=== PATIENT | male | born 1980 | race African-American/Black ===

== ENCOUNTER 2016-07-27 19:03 | Emergency (ER) | payer SELFPAY ==
[2016-07-27] MEDS ORDERED: NAPROXEN 250 MG TABLET PO ONE (20:06)
[2016-07-27] MEDS ORDERED: PENICILLIN V POTASSIUM 500 MG TABLET PO ONE (20:06)
--- NOTE | 2016-07-27 20:08 | ER Document Report ---
HPI - HPI Patient complains to provider of: toothache and facial swelling Pain Level: 4 Context: Patient is a 35-year-old male presents emergency Department complaining of tooth pain since Wednesday but no onset facial swelling today. Patient denies any fevers or chills. Able to swallow without any difficulty, denies any muffled speech, shortness of breath, difficulty breathing, followed or drainage from around this tooth. Patient states that he previously broken this tooth trying to extract it because he didn't want to go to the dentist this happened a couple of years ago. Otherwise denies any other medical problems no known drug allergies. - DERM Skin Color: Normal, [place] Past Medical History - Social History Smoking Status: Current Every Day Smoker Family History: Reviewed & Not Pertinent Patient has suicidal ideation: No Patient has homicidal ideation: No Pulmonary Medical History: Reports: Hx Asthma - unsure? possible hx when he was a child Renal/ Medical History: Denies: Hx Peritoneal Dialysis - Immunizations Hx Diphtheria, Pertussis, Tetanus Vaccination: No Vertical Provider Document - CONSTITUTIONAL Agree With Documented VS: Yes Exam Limitations: No Limitations General Appearance: WD/WN, No Apparent Distress Notes: PHYSICAL EXAM GENERAL: Alert, interacts well. ENT:Uvula midline. Airway patent. No evidence of tonsillar enlargement, peritonsillar abscess, retropharyngeal abscess. NECK: Full range of motion. Supple. Trachea midline. Negative for Ryder angina LUNGS: Clear to auscultation bilaterally, no wheezes, rales, or rhonchi. No respiratory distress. HEART: Regular rate and rhythm. No murmurs, gallops, or rubs. NEUROLOGICAL: Alert and oriented x4. Normal speech. PSYCH: Normal affect, normal mood. SKIN: Warm, dry, normal turgor. No rashes or lesions noted. - INFECTION CONTROL TRAVEL OUTSIDE OF THE [place] IN LAST 30 DAYS: No - HEENT Mouth Diagram: 1 - Dental fractures with evidence of severe dental decay mild tenderness to palpation. No evidence of peridental abscess Pupil inflammation but no palpation of abscess. - RESPIRATORY O2 Sat by Pulse Oximetry: 97 Course - Re-evaluation Re-evalutation: 07/27/16 22:10 Discussed with patient that he will need to go home on antibiotic. In terms of pain management offered him a dental block which she declined. Patient asking for antibiotic and will follow up with a dentist. - Vital Signs Vital signs: Temp Pulse Resp BP Pulse Ox 99.5 F 95 16 136/78 H 97 07/27/16 19:08 07/27/16 19:08 07/27/16 19:08 07/27/16 19:08 07/27/16 19:08 Discharge - Discharge Clinical Impression: Toothache Condition: Good Disposition: HOME, SELF-CARE Instructions: Penicillin V K ([facility]), Toothache ([facility]) Additional Instructions: Sedation dentistry in [facility] [place], [place] Address: [address] [place] [id number] [facility] [address] [place], [place] Wednesday mornings, by appointment [facility] [address] [place] [address] [facility] [place] [address] [facility] [address] [place] [address] ([facility]) [facility] [address] [email or web address] [address] [place] [address] Wednesday- 8:00am to 5:00 pm [facility]. Charges based on income and family size and accepts Medicare, Medicaid, and Insurances Will pull molars [facility] [id number] Hours of Operation 8:00 am - 4:30 pm weekdays The following dental offices accept Medicaid: [facility] Dr[address] Dr. Whaley Dr. Boles Ty Parker, [place], and [place] oral surgery Dr. Carrion ([place]) Dr. Washington ([place]) [facility] Drs. Owesn ([place]) Dr. [place] ([place]) [facility] Dr. Hawkins ([place]) Drs. Acosta and ([place]) Medicaid Care Line Prescriptions: Naproxen 500 mg PO Q12HP PRN #16 tablet PRN Reason: Penicillin V Potassium [Penicillin Vk 500 mg Tablet] 500 mg PO BID #20 tablet Forms: Elevated Blood Pressure
[2016-07-27 20:31] VITALS: BP 140/83
== END 2016-07-27 20:29 | disposition home or self-care (01) ==
LOC: ER 19:03
DX: K02.9 Dental caries, unspecified (principal); K08.89 Other specified disorders of teeth and supporting structures; R22.0 Localized swelling, mass and lump, head; F17.200 Nicotine dependence, unspecified, uncomplicated
CPT/HCPCS: 99282